=== PATIENT | male | born 1960 | race Caucasian/White ===

== ENCOUNTER 2021-08-14 10:21 | Day surgery (SDC) | payer BC, OTHER ==
[2021-08-14] MEDS ORDERED: LIDOCAINE 1% (10MG/ML) FOR IV START INTRADERMA ONE (11:24)
[2021-08-14] MEDS: LACTATED RINGERS 1,000 ML IV SCH ×2 (11:24→13:00)
[2021-08-14 11:31] VITALS: RESP 16; TEMP 98.1
[2021-08-14] MEDS ORDERED: PHENYLEPHRINE-0.9% NACL SYG 1,000 MCG/10 ML SYRINGE ONE (13:01)
[2021-08-14] MEDS ORDERED: PROPOFOL 10 MG/ML 20 ML VIAL IV ONE (13:01)
[2021-08-14] MEDS ORDERED: LIDOCAINE 1% INJ 10MG/ML (20 ML MDV) ONE (13:01)
--- NOTE | 2021-08-14 13:16 | P.PCN ---
Date of Procedure: 08/14/21 Procedure(s) Performed: BRIEF HISTORY: Patient is a 61-year-old pleasant white male scheduled for an elective colonoscopy as a part of evaluation of prior history of colon polyps. Last colonoscopy was 5 years ago. PROCEDURE PERFORMED: Colonoscopy with biopsy . PREOPERATIVE DIAGNOSIS: History of colon polyps. IV sedation per Anesthesia. PROCEDURE: After informed consent was obtained, the patient, was brought into the endoscopy unit. IV sedation was administered by Anesthesia under continuous monitoring. Digital rectal examination was normal. Initially the Olympus CF-160 flexible video colonoscope was then inserted in the rectum, gradually advanced into the cecum without any difficulty. Careful examination was performed as the scope was gradually being withdrawn. Ileocecal valve and the appendiceal orifice were visualized and appeared normal. Prep was excellent. Mucosa of the cecum, ascending colon, transverse colon, descending colon, sigmoid colon appeared normal. In the distal sigmoid colon there was a 3 mm polyp that was removed by cold biopsy. Therectum appeared normal. Retroflexion was performed in the rectum and no lesions were seen. The patient tolerated the procedure well. IMPRESSION: 3 mm distal sigmoid colon polyp status post biopsy Rest of the colon appeared normal RECOMMENDATIONS: Findings of this examination were discussed with the patient as well as his family.. He was advised to follow with the biopsy results and have a repeat colonoscopy in 5 years
[2021-08-14 13:34] VITALS: BP 132/86; PULSE 68
== END 2021-08-14 13:49 | disposition home or self-care (01) ==
LOC: ORWHC2ENDO 10:21
PROVIDERS: ATTEND Internal Medicine Gastroenterology
DX: Z12.11 Encounter for screening for malignant neoplasm of colon (principal); K63.5 Polyp of colon; Z86.010 Personal history of colon polyps; I25.10 Atherosclerotic heart disease of native coronary artery without angina pectoris; I10 Essential (primary) hypertension; E78.5 Hyperlipidemia, unspecified; I25.2 Old myocardial infarction; Z87.891 Personal history of nicotine dependence; Z79.82 Long term (current) use of aspirin; Z79.899 Other long term (current) drug therapy
CPT/HCPCS: 88305; 45380; J2001; J2370; J2704

== ENCOUNTER → 2024-02-24 | Outpatient (CLI) | payer BC ==
--- NOTE | 2024-02-24 11:53 | US ---
EXAMINATION TYPE: US abdomen complete DATE OF EXAM: 02/24/2024 COMPARISON: NONE CLINICAL INDICATION: Male, 63 years old with history of K43.9 VENTRAL HERNIA WITHOUT OBSTRUCTION OR G ANGRE; Patient states possible hernia. Hx of cholecystectomy. No other symptoms. TECHNIQUE: Multiple sonographic images of the abdomen are obtained. FINDINGS: EXAM MEASUREMENTS: Liver Length: 13.1 cm Gallbladder Wall: Surgically absent CBD: 0.6 cm Spleen: 8.5 cm Right Kidney: 13.1 x 4.7 x 6.1 cm Left Kidney: 12.5 x 5.3 x 4.9 cm RADIAL DRILL PRESS OPERATOR NOTES: Slightly limited due to overlying bowel Pancreas: Obscured by bowel gas Liver: There is a 1.0 x 1.2 x 1.0cm anechoic lesion seen within the left lobe. There is a 2.5 x 3.4c m hyperechoic area seen within the right lobe with posterior shadowing. This areas seems to be near t he carmen hepatis. Gallbladder: Surgically absent Evidence for sonographic Rizo's sign: No CBD: wnl Spleen: wnl as best seen today Right Kidney: There is a 2.1 x 0.9 x 2.1cm anechoic area within the renal sinus. Slightly enlarged Left Kidney: There are a few anechoic areas seen within the renal sinus. Slightly enlarged Upper IVC: wnl as best seen Abd Aorta: Prox obscured by gas. Mid/ dist obscured by bowel There is a hypoechoic area seen at patients area of palpable at the umbilicus. This area was assess ed with valsalva maneuver and has a 2.1cm neck. IMPRESSION: 1. Probable small 2 cm periumbilical hernia. 2. Surgical absence of the gallbladder. No biliary ductal dilatation. 3. No solid renal mass, hydronephrosis or calculus. Small parapelvic cysts bilaterally 4. 3.4 cm hyperechoic mass within the right lobe of the liver which most likely represents an hemangi juancarlos. CT dedicated to the liver is recommended to confirm. 5. Evaluation of pancreas, abdominal aorta and IVC is limited due to bowel gas.
== END | disposition home or self-care (01) ==
LOC: RADUSWWP 07:04
PROVIDERS: ATTEND Pediatrics
DX: K43.9 Ventral hernia without obstruction or gangrene (principal); R14.3 Flatulence; Z90.49 Acquired absence of other specified parts of digestive tract
CPT/HCPCS: 76700

== ENCOUNTER → 2024-03-20 | Outpatient (CLI) | payer BC ==
[2024-03-20 12:48] LABS: African American GFR (CKD) >90 (>60 ml/min/1.73 sqM); Blood Urea Nitrogen 21 mg/dL (9-20); Non-African American GFR(CKD) >90 (>60 ml/min/1.73 sqM)
--- NOTE | 2024-03-20 13:56 | CT ---
EXAMINATION TYPE: CT abdomen wo/w con DATE OF EXAM: 03/20/2024 COMPARISON: Ultrasound 02/24/2024 HISTORY: LESION FOUND ON LIVER DURING US CT DLP: 1206 mGycm CONTRAST: CT scan of the abdomen is performed with Oral Contrast and with IV Contrast, patient injected with 10 0 mL of Isovue 300. FINDINGS: LUNG BASES-: No visible nodule. No infiltrate. LIVER/GB: The gallbladder is surgically absent. Mild postoperative intra and extra hepatic biliary du ctal prominence. Small cyst lateral segment left hepatic lobe measures 1 cm. 3.4 cm hyperechoic lesio n seen within the right hepatic lobe on ultrasound is not confirmed by CT at this time. Consider six- month follow-up ultrasound and/or MRI. If clinically indicated. PANCREAS: No inflammation. No distinct mass. SPLEEN: Nodular thickening left adrenal gland likely reflects hyperplasia. ADRENALS: No nodule. No thickening. KIDNEYS/BLADDER: No hydronephrosis. Nonobstructing 2 mm calculus mid pole left kidney. No distinct r enal mass. Urinary bladder grossly unremarkable. BOWEL: Visualized bowel loops. Normal caliber. LYMPH NODES: No greater than 1cm abdominal or pelvic lymph nodes are appreciated. AORTA: No significant abnormality. OSSEOUS STRUCTURES: No significant abnormality is seen. OTHER: 2 cm fat-containing umbilical hernia. IMPRESSION: 1. Small cyst lateral segment left hepatic lobe measures 1 cm. 3.4 cm hyperechoic lesion seen within the right hepatic lobe on ultrasound is not confirmed by CT at this time. Consider six-month follow-u p ultrasound and/or MRI. If clinically indicated. 2. Probable hyperplasia left adrenal gland. 3. Nonobstructing calculus left kidney. 4. Fat-containing umbilical hernia.
== END | disposition home or self-care (01) ==
LOC: RADCTMAIN 12:07
PROVIDERS: ATTEND Pediatrics
DX: K42.9 Umbilical hernia without obstruction or gangrene (principal); N20.0 Calculus of kidney; K76.9 Liver disease, unspecified
CPT/HCPCS: 82565; 84520; 74170; 36415; Q9967

== ENCOUNTER → 2024-09-21 | Outpatient (CLI) | payer BC ==
--- NOTE | 2024-09-23 21:16 | US ---
EXAMINATION TYPE: US abdomen complete DATE OF EXAM: 09/21/2024 COMPARISON: us 02/24/24 ct 03/20/24 CLINICAL INDICATION: Male, 64 years old with history of K76.9 LIVER LESION; f/u liver lesion TECHNIQUE: Grayscale and color Doppler imaging of the abdomen was performed. FINDINGS: EXAM MEASUREMENTS: Liver Length: 13.7 cm Gallbladder Wall: Surgically absent CBD: 0.6 cm, color Doppler imaging was utilized to isolate the common bile duct for measurement. Spleen: 8.5 cm Right Kidney: 13.1x5.3x4.9 cm Left Kidney: 12.5x5.3x4.9 cm CRIMINAL RESEARCH SPECIALIST NOTES: Pancreas: Obscured by bowel gas Liver: left liver cyst: 0.9x1.1x1.1cm, area scanned on US, and not visualized on CT appears to the l igamentum of juice on todays exam Gallbladder: Surgically absent Evidence for sonographic Rizo's sign: No CBD: wnl Spleen: wnl Right Kidney: inf pole cyst 1.7x1.2x1.3cm Left Kidney: wnl Upper IVC: wnl Abd Aorta: calcified There is a simple appearing hepatic cyst IMPRESSION: 1. Cyst within the liver. 2. Inferior pole right renal cyst. [facility], , 09/23/2024 9:13 PM
== END | disposition home or self-care (01) ==
LOC: RADUSWWP 07:11
PROVIDERS: ATTEND Pediatrics
DX: K76.9 Liver disease, unspecified (principal); N28.1 Cyst of kidney, acquired
CPT/HCPCS: 76700